=== PATIENT | male | born 1945 | race Caucasian/White ===

== ENCOUNTER 2016-06-04 16:12 | Emergency (ER) | payer OTHER ==
[~2016-06-04] VITALS: Ht 177.8 cm; Wt 97.4 kg
[~2016-06-04 16:12] MED LIST: ACTOS15 MG PO; ALDACTONE25 MG PO; AMARYL4 MG PO; ASPIRIN E.C.81 M2 PO; Amaryl PO; Aspirin Chewable PO; BAYER CHEWABLE81 MG PO; CATAPRES0.2 MG PO; CLINDAMYCIN HC300 MG PO; CYMBALTA20 MG PO; DOCUSATE SODIU100 M1 PO; FEOSOL325 MG PO; Feosol PO; GLIMEPIRIDE4 MG PO; Glucophage PO; HYCODAN PO; JANUVIA100 MG PO; Januvia PO; KEFLEX500 MG PO; KLOR-CON 88 MEQ PO; LANOXIN,DIGIT0.25 MG PO; LANOXIN250 MCG PO; LANTUS 3 M100 UNITS1 SC; LASIX40 MG PO; LEVEMIR FL100 UNIT/1 SC; LEVEMIR100 UNIT/2 SC; LOPRESSOR25 MG PO; Lanoxin,Digitek PO; Lasix PO; Lopressor PO; METFORMIN HCL1000 MG PO; METFORMIN HCL500 MG PO; METOPROLOL TAR100 MG PO; MONOPRIL20 MG PO; Micro-K,Klor-Con PO; Monopril PO; NORVASC10 MG PO; Norvasc PO; PEN-VEE K,VEET500 MG PO; SIMVASTATIN10 MG PO; Tricor PO; VITAMIN D-32000 UNI2 PO; Vicodin,Norco 5/325 PO; Vitamin D PO; XALATAN2.5 ML BOTH EYES; Xalatan 0.005% Ophth BOTH EYES; Zithromax PO; Zocor PO
[2016-06-04 17:40] LABS: ADD MIUA? YES; BILIRUBIN NEGATIVE; BLOOD SMALL; COLOR YELLOW ((YELLOW)); GLUCOSE (STRIP) >=1000; KETONES NEGATIVE; LEUKOCYTES NEGATIVE; NITRITE NEGATIVE; PROTEIN (STRIP) >=300; SPECIFIC GRAVITY 1.021 (1.000-1.030); UROBILINOGEN 0.2 MG/DL (0.2-1.0)
[2016-06-04 17:56] LABS: BACTERIA NONE SEEN; CASTS NONE SEEN /LPF; CRYSTALS NONE SEEN; EPITHELIAL CELLS NONE SEEN; MUCUS NONE SEEN; RED BLOOD CELLS RARE /HPF (0-5); UCUL ADDED? NO; WHITE BLOOD CELLS NONE SEEN /HPF (0-5)
[2016-06-04 18:05] LABS: MCH 28.1 PG (29.0-34.0); MCHC 34.6 G/DL (30.0-36.0); MCV 81.3 FL (86-99); MEAN PLAT.VOLUME 10.9 uM^3 (9.0-12.4); PLATELET COUNT 125 K/uL (156-360); RBC DIS.WIDTH-CV 16.3 % (11.8-14.6); RBC DIS.WIDTH-SD 47.3 % (39-53); WHITE BLOOD COUNT 9.1 K/uL (4.1-10.2)
[2016-06-04 18:14] LABS: CHLORIDE 99 mEq/L (99-109); SODIUM 133 mEq/L (136-147)
[2016-06-04 18:16] LABS: GLUCOSE 218 mg/dL (70-99)
[2016-06-04 18:17] LABS: ANION GAP 13 MEQ/L (2-14)
[2016-06-04 18:18] LABS: TOTAL BILIRUBIN 1.4 mg/dL (0.0-1.0)
[2016-06-04 18:20] LABS: ALKALINE PHOSPHATASE 80 IU/L (3-129); GFR ESTIMATE (CALCULATED) > 59 mL/min/
[2016-06-04 18:21] LABS: UREA NITROGEN (BUN) 20 mg/dL (9-23)
[2016-06-04 18:51] LABS: LIPASE 28 U/L (1.0-51.0)
[2016-06-04] MEDS ORDERED: COLACE100 MG PO (20:49)
[2016-06-04] MEDS ORDERED: ULTRAM50 MG PO (20:49)
[2016-06-04] MEDS ORDERED: FLAGYL500 MG PO (20:49)
[2016-06-04] MEDS ORDERED: CIPRO500 MG PO (20:49)
[2016-06-04 21:42] VITALS: BP 110/48
== END 2016-06-04 22:02 | disposition home or self-care (01) ==
LOC: EXP 16:12 → EME 16:12 → EXP 22:02
PROVIDERS: Nurse Practitioner Family
DX: K52.9 Noninfective gastroenteritis and colitis, unspecified (principal); E11.9 Type 2 diabetes mellitus without complications; I10 Essential (primary) hypertension; Z85.038 Personal history of other malignant neoplasm of large intestine; Z87.442 Personal history of urinary calculi; Z95.1 Presence of aortocoronary bypass graft; Z88.2 Allergy status to sulfonamides
CPT/HCPCS: 74177; 80053; 81003; 83690; 85027; 99281; 99285; J2405

== ENCOUNTER 2017-04-30 12:23 | Emergency (ER) | payer OTHER ==
[~2017-04-30] VITALS: Ht 180.3 cm; Wt 100.0 kg
[~2017-04-30 12:23] MED LIST changes: +CIPRO500 MG PO; +COLACE100 MG PO; +FLAGYL500 MG PO; +ULTRAM50 MG PO
[2017-04-30] MEDS ORDERED: ULTRACET1 TABLET PO (17:04)
[2017-04-30 17:30] VITALS: BP 148/60
== END 2017-04-30 17:31 | disposition home or self-care (01) ==
LOC: EME 12:23
DX: S70.02XA Contusion of left hip, initial encounter (principal); R51 Headache; V03.00XA Pedestrian on foot injured in collision with car, pick-up truck or van in nontraffic accident, initial encounter; Y92.481 Parking lot as the place of occurrence of the external cause; E11.9 Type 2 diabetes mellitus without complications; I10 Essential (primary) hypertension; E78.5 Hyperlipidemia, unspecified; K21.9 Gastro-esophageal reflux disease without esophagitis; Z87.891 Personal history of nicotine dependence; Z87.442 Personal history of urinary calculi; Z85.038 Personal history of other malignant neoplasm of large intestine; Z95.1 Presence of aortocoronary bypass graft; Z88.2 Allergy status to sulfonamides
CPT/HCPCS: 70450; 72100; 72125; 73502; 99281; 99284